=== PATIENT | female | born 1970 | race Two or more races ===

== ENCOUNTER → 2024-03-24 | Outpatient (CLI) | payer MEDICAID, SELFPAY ==
[2024-02-26 15:53] LABS: Blood Urea Nitrogen 14 mg/dL (9-23); Creatinine (Component) 0.6 mg/dL (0.6-1.3); eGFR > 60 See Note
--- NOTE | 2024-03-24 10:19 | XR_ITS ---
Examination: CT abdomen with intravenous contrast CT pelvis with intravenous contrast 2-D coronal reconstructions 2-D sagittal reconstructions Date and time of exam:March 24, 2024 1205 hours Comparison October 20, 2023 INDICATIONS: Hematuria beginning one year ago abdominal pain 3 months. History acute diverticulitis sigmoid colon October 20, 2023 CTDI: vol (mGy) 8.05 DLP: (mGycm) 420 Technique: Multiple axial sections of the abdomen and pelvis have been obtained. 64 slice high-resolution scanner used. 3 mm axial sections have been obtained, post intravenous injection 60 cc [id number] 2-D sagittal, coronal reconstructions obtained. Low dose protocols were performed. One or more of the following dose reduction techniques were used; automated exposure control, adjustment of the mA and/or KV according to patient size, use of iterative reconstruction technique. Findings: No focal liver or splenic lesions Gallbladder not visualized No pancreatic or adrenal mass No renal or ureteral calculi, no hydronephrosis Aorta normal size Normal appendix Colonic diverticulosis, no diverticulitis Contracted urinary bladder Absent uterus Significant degenerative disc disease L5-S1 IMPRESSION: No renal or ureteral calculi, no hydronephrosis Normal appendix Colonic diverticulosis no diverticulitis
== END | disposition home or self-care (01) ==
PROVIDERS: PCP Family Medicine; Referring Provider Internal Medicine Gastroenterology; Visit Provider Internal Medicine Gastroenterology
DX: K57.30 Diverticulosis of large intestine without perforation or abscess without bleeding (principal); R10.32 Left lower quadrant pain
CPT/HCPCS: 36415; 74177; 82565; 84520; A4649; Q9967

== ENCOUNTER 2024-07-12 01:31 | Emergency (ER) | payer MEDICAID, SELFPAY ==
[2024-07-12 01:38] VITALS: BP 137/81; PULSE 71; RESP 16; TEMP 36.7; O2SAT 97
--- NOTE | 2024-07-12 01:51 | PD.EDABDPN ---
ED Abdominal Pain RME/HPI General Chief Complaint: Abdominal Pain Stated complaint: ABD PAIN, RECTAL PAIN Time seen by provider: 07/12/24 01:37 Arrival date/time: 07/12/24 01:31 Source: patient Mode of arrival: ambulatory Limitations: language barrier RME / HPI RME / HPI narrative: 53-year-old female with past medical history of chronic hemorrhoids presents for evaluation of dysuria x 5 days. She reports suprapubic pressure and burning with urination. She notes intermittent scant rectal bleeding. She reports that was recently diagnosed with recurrence of hemorrhoids by her primary care doctor and given a bowel regimen which she is following at home. She denies constipation, flank pain, hematuria, fever, gross rectal breathing, nausea, vomiting, diarrhea, weakness, dizziness, chest pain, shortness of breath. Patient reports that she has not taken pain medication for her suprapubic discomfort prior to arrival to the ED. MD complaint: abdominal pain Onset (ago): day(s) Related Data Home Medications ?Medication ?Instructions ?Recorded ?Confirmed albuterol sulfate 90 mcg/actuation 2 puff inhalation QDAY PRN 08/27/21 01/16/22 aerosol inhaler Shortness Of Breath fluticasone propionate 50 1 spray intranasal QDAY PRN 08/27/21 01/16/22 mcg/actuation nasal ALLERGY SYMTPOMS spray,suspension dicyclomine 10 mg capsule 1 cap PO BID 01/16/22 01/16/22 gabapentin 400 mg capsule 1 cap PO QDAY 01/16/22 01/16/22 hydrocortisone 2.5 % topical cream 1 applic AL QDAY 01/16/22 01/16/22 with perineal applicator (Procto-Med ) nitrofurantoin 1 cap PO BID 01/16/22 01/16/22 monohydrate/macrocrystals 100 mg capsule omeprazole 20 mg capsule,delayed 1 cap PO BID 01/16/22 01/16/22 release omeprazole 40 mg capsule,delayed 1 cap PO QDAY 01/16/22 01/16/22 release oxybutynin chloride 10 mg 1 tab PO QDAY 01/16/22 01/16/22 tablet,extended release 24 hr pantoprazole 40 mg tablet,delayed 1 tab PO QDAY 01/16/22 01/16/22 release phenazopyridine 200 mg tablet 1 tab PO TID 01/16/22 01/16/22 Previous Rx's ?Medication ?Instructions ?Recorded ciprofloxacin HCl 500 mg tablet 500 mg PO BID #20 tabs 01/16/22 (Cipro) metronidazole 500 mg tablet 500 mg PO TID #21 tabs 01/16/22 metronidazole 500 mg tablet 500 mg PO TID #21 tabs 10/20/23 amoxicillin 500 mg-potassium 1 tab PO BID pyuria 7 days #14 07/12/24 clavulanate 125 mg tablet tabs (Augmentin) ibuprofen 800 mg tablet 800 mg PO Q8H PRN pain #14 tabs 07/12/24 Allergies Allergy/AdvReac Type Severity Reaction Status Date / Time codeine Allergy Severe Vomiting Verified 07/12/24 01:32 hydrocodone AdvReac Intermediate VOMITING Verified 07/12/24 01:32 Review of Systems Constitutional Constitutional: Denies fatigue, Denies fever(s) and Denies weakness ENT Ears, Nose, Mouth, and Throat: Denies neck pain Cardiovascular Cardiovascular: Denies acrocyanosis, Denies chest pain and Denies dyspnea Respiratory Respiratory: Denies cough and Denies dyspnea Gastrointestinal Gastrointestinal: Reports abdominal pain, Denies change in bowel habits, Denies constipation, Denies cramping, Denies hematochezia, Denies loose stools, Denies melena, Denies nausea and Denies vomiting Genitourinary Genitourinary: Reports dysuria, Denies flank pain, Denies hematuria and Denies urinary incontinence Musculoskeletal Musculoskeletal: Denies back pain and Denies neck pain Integumentary/Breasts Skin/Breast: Denies rash Neurologic Neurologic: Denies confusion and Denies weakness Psychiatric Psychiatric: Denies confusion Endocrine Endocrine: Denies fatigue Past Medical History Past Medical History NEUROLOGIC: Negative Neurological Disorders or Seizures CARDIAC: Negative Cardiac Disorders, Hypercholesterolemia, Congestive Heart Failure or Hypertension RESPIRATORY: Negative Chronic Obstructive Pulmonary Disease (COPD) or Asthma GASTROINTESTINAL: Positive Gastrointestinal Disorders, Gall Bladder Disease, Diverticulitis, Hemorrhoids and Gastroesophageal Reflux Disease GENITOURINARY: Negative Genitourinary Disorders or Renal Disease MUSCULOSKELETAL: Negative Musculoskeletal Disorders ENDOCRINE: Negative Endocrine Disorders, Diabetes Mellitus Type 1, Diabetes Mellitus Type 2 or Hypothyroidism HEMATOLOGIC: Negative Blood Disorders, Anemia or Sickle Cell Disease OTHER HISTORY: Negative Hospitalization, Autoimmune Disease, Falls, Blood Transfusions, Anesthesia Reactions or Cancer Surgical History SURGICAL: Positive Abdominal Surgery, Hysterectomy and Section Social History SMOKING STATUS: Never smoker SUBSTANCE USE: does not use ED Exam General Limitations: Present language barrier General appearance: Present alert and in no apparent distress Head Head exam: Present atraumatic and normocephalic Eye Eye exam: Present normal appearance and EOMI; Absent scleral icterus ENT ENT exam: Present normal oropharynx and mucous membranes moist Chest Chest inspection: Present normal inspection and symmetric chest wall rise Respiratory Respiratory exam: Absent respiratory distress Cardiovascular Cardiovascular exam: Present regular rate and +S1 Abdominal Exam Abdominal exam: Present soft, tenderness and normal bowel sounds; Absent distention, guarding or mass Abdominal tenderness: Present suprapubic Rectal Exam Rectal exam: Present deferred (Patient recently diagnosed with known internal hemorrhoids.) Extremities Exam Extremities exam: Present normal inspection and full ROM Back Exam Back exam: Present normal inspection; Absent CVA tenderness (R) or CVA tenderness (L) Neurological Exam Neurological exam: Present alert and normal gait Psychiatric Psychiatric exam: Present normal affect Skin Skin exam: Present warm, dry and intact Course Quality Measures none Orders Category Date Time Status UA, C/S IF [Urinalysis, C/S if Indicated] Stat Lab 07/12/24 02:02 Completed Acetaminophen Tab [Tylenol Tab] Med 07/12/24 01:45 Discontinued 650 mg PO X1 ONE Reevaluation(s) Reevaluation #1: Patient requesting to be discharged home. Agreeable with plan for further workup by primary care. Time: 03:49 Vital Signs Vital signs: Vital Signs Temperature 98.0 F 07/12/24 01:38 Pulse Rate 71 07/12/24 01:38 Respiratory Rate 16 07/12/24 01:38 Blood Pressure 137/81 H 07/12/24 01:38 Pulse Oximetry (%) 97 07/12/24 01:38 Oxygen Delivery Method Room Air 07/12/24 01:38 Pulse ox 97% on room air, within normal limits. Abdominal Pain MDM MDM Narrative MDM Narrative:: 53-year-old female presented for evaluation of suprapubic discomfort and dysuria. She notes known chronic hemorrhoids which have concurrently been uncomfortable. Vital signs reassuring. UA was ordered which showed pyuria. Considered ordered blood work to evaluate renal function, however patient was requesting to be discharged. We stressed the need for her to continue to follow-up with primary care as planned for further evaluation and treatment. Patient was started on oral antibiotic for possible early onset bacterial UTI. Patient stable at time of discharge. Return precautions were provided. Patient data External records reviewed:: [facility] previous records Clinical information provided by:: patient Social determinants that could affect healthcare access:: none Patient has the following chronic illnesses:: Known internal hemorrhoids. How is presenting disease/condition affected by chronic disease/condition?: exacerbated by Evaluation data The following diagnostics were reviewed and interpreted by me:: lab results Lab and/or radiology exams considered but not ordered:: CT abdomen pelvis considered not ordered. Labs considered not ordered. Interpretation Summary: UA with positive leukocytes and negative nitrites. Elevated white blood cell count on UA. Medications / Prescriptions Medications or Prescriptions considered but not ordered:: Rx given. Medication administrations:: Medication Administration History Discontinued Medications Acetaminophen (Acetaminophen 325 Mg Tablet) 650 mg PO X1 ONE Stop: 07/12/24 01:46 Last Admin: 07/12/24 01:56 Dose: 650 mg Documented By: CVL Rx given. Consultations Consultation(s) initiated? (list below): No Diagnosis Differential diagnosis abdominal pain: abdominal pain, calculus of kidney, gastroenteritis and other (Internal hemorrhoids, urinary tract infection, cystitis. ) Most likely diagnosis given after review of the tests above:: Pyuria. Admission Indicated Admission indicated?: not indicated Admission Request Was there a request for admission?: No Disposition Plan Disposition Plan: Discharge Discharge Attestation Discharge Attestation: The patient and all family members were given an opportunity to ask questions and understood the discharge instructions. Discharge instructions specifically effects, indications for sooner follow up or return to the emergency department, and the expected course of current diagnosis. Patient condition: Stable Discharge Plan Plan Patient Disposition: HOME (Self Care) Disposition Comment: stable Prescriptions/Referrals Prescriptions/Med Rec: New amoxicillin-pot clavulanate [Augmentin] 500-125 mg tablet 1 tab PO BID 7 Days Qty: 14 0RF ibuprofen 800 mg tablet 800 mg PO Q8H PRN (Reason: pain) Qty: 14 0RF No Action albuterol sulfate 90 mcg/actuation HFA aerosol inhaler 2 puff INHALATION QDAY PRN (Reason: Shortness Of Breath) fluticasone propionate 50 mcg/actuation spray,suspension 1 spray INTRANASAL QDAY PRN (Reason: ALLERGY SYMTPOMS) Patient Comments: USE 1 SPRAY(S) IN EACH NOSTRIL ONCE DAILY NEEDED FOR NASAL CONGESTION metronidazole 500 mg tablet 500 mg PO TID Qty: 21 0RF oxybutynin chloride 10 mg tablet extended release 24hr 1 tab PO QDAY phenazopyridine 200 mg tablet 1 tab PO TID gabapentin 400 mg capsule 1 cap PO QDAY omeprazole 40 mg capsule,delayed release(DR/EC) 1 cap PO QDAY hydrocortisone [Procto-Med HC] 2.5 % cream with perineal applicator 1 applic AL QDAY Patient Comments: INSERT CREAM RECTALLY ONCE DAILY pantoprazole 40 mg tablet,delayed release (DR/EC) 1 tab PO QDAY Patient Comments: TAKE 1 TABLET BY MOUTH ONCE DAILY omeprazole 20 mg capsule,delayed release(DR/EC) 1 cap PO BID Patient Comments: TAKE 1 CAPSULE BY MOUTH TWICE DAILY dicyclomine 10 mg capsule 1 cap PO BID Patient Comments: TAKE 1 CAPSULE BY MOUTH TWICE DAILY nitrofurantoin monohyd/m-cryst 100 mg capsule 1 cap PO BID ciprofloxacin HCl [Cipro] 500 mg tablet 500 mg PO BID Qty: 20 0RF metronidazole 500 mg tablet 500 mg PO TID Qty: 21 0RF Referrals: Albin Pelletier MD [Primary Care Provider] - In 1 week Problem List Clinical Impression: Pyuria Patient/Caregiver Discharge Instructions Other Activity Instructions:: Take Augmentin twice daily for pyuria with possible UTI. Continue bowel regimen as advised by primary care doctor. Take ibuprofen as needed for suprapubic pain. Follow-up with primary care doctor within the next 2 to 3 days for reevaluation. Return to the ED if your symptoms worsen or change. Print Language: Yoruba Stand Alone Forms: Nina Award Info., Patient Portal Info Letter PA/COMMUNITY MARKETING COORDINATOR Supervising Physician PA/ARI Supervising Physician: Dr. Linda
[2024-07-12] MEDS: ACETAMINOPHEN 325 MG TABLET 650 MG PO (01:56)
[2024-07-12 02:28] LABS: Collection Type, Urine Clean Catch
[2024-07-12 03:32] LABS: Bilirubin,Urine Negative (Negative); Blood,Urine Trace (Negative); Clarity,Urine Clear (Clear/Hazy); Color,Urine Yellow (Lt Yel-Yel); Culture Indicated,Urine Not Indicated; Glucose, Urine Trace (Negative); Ketones,Urine Trace (Negative); Leukocyte Esterase,Urine Positive (Negative); Nitrite,Urine Negative (Negative); PH,Urine 5.5 (5.0-7.0); Protein,Urine 1+ (Neg - Trace); RBC,Urine 5 /hpf (0-3); Specific Gravity,Urine 1.044 (1.001-1.035); Squamous Epithelial Cell,Urine 1 /hpf (0-5); Urobilinogen,Urine Negative mg/dL (0.0-1.0); WBC,Urine 2 /hpf (0-5)
[2024-07-12 04:01] VITALS: RESP 18
== END 2024-07-12 04:02 | disposition home or self-care (01) ==
PROVIDERS: Physician Assistant; Emergency Provider Emergency Medicine; PCP Family Medicine
DX: R82.81 Pyuria (principal); K64.9 Unspecified hemorrhoids
CPT/HCPCS: 81001; 99283; A9270

== ENCOUNTER → 2024-11-29 | Outpatient (CLI) | payer MEDICAID, SELFPAY ==
--- NOTE | 2024-11-29 14:30 | XR_ITS ---
Examination: CT abdomen and pelvis without contrast. Coronal 3-D reconstructions. Sagittal 2-D reconstructions. Date and time of exam:November 29, 2024 1508 hours, comparison March 24, 2024 INDICATIONS: Onset of pelvic and perineal pain 6 months CTDI: vol (mGy): 7.55 DLP: (mGycm): 111 Technique: Axial images of the abdomen have been obtained, 3 mm slice thickness Intravenous contrast material has not been administered. Low dose protocols were performed. One or more of the following dose reduction techniques were used; automated exposure control, adjustment of the mA and/or KV according to patient size, use of iterative reconstruction technique. Findings: No focal liver or splenic lesions Absent gallbladder No pancreatic or adrenal mass Mild renal parenchymal scar formation, no hydronephrosis Normal appendix No bowel obstruction Fluid distended small bowel loops Colonic diverticulosis Contracted urinary bladder Moderate disc narrowing L5-S1 IMPRESSION: Mild bilateral renal parenchymal scar formation Normal appendix Fluid distended small bowel loops, differential would include ileus, enteritis such as Crohn's disease, clinical correlation advised
== END | disposition home or self-care (01) ==
PROVIDERS: PCP Physician Assistant; Referring Provider Physician Assistant; Visit Provider Physician Assistant
DX: N28.89 Other specified disorders of kidney and ureter (principal); K63.89 Other specified diseases of intestine
CPT/HCPCS: 74176

== ENCOUNTER → 2024-12-16 | Outpatient (CLI) | payer MEDICAID, SELFPAY ==
--- NOTE | 2024-12-16 10:00 | XR_ITS ---
Examination: Screening digital mammography, bilateral Computer aided detection 3-D breast Tomosynthesis, bilateral Date and time of exam: 12/16/2024, 10:13 AM Comparisons: July 2020 through November 2023 Indications: Screening Technique: Nonmagnified MLO, CC views of the breasts to been obtained, reconstructed from 3-D Tomosynthesis images. R2 computer aided detection program utilized for evaluation of suspicious masses and/or abnormal calcifications. 3-D Tomosynthesis images obtained. Technologist: Findings: There are scattered areas of fibroglandular density. No evidence of abnormal masses or suspicious calcifications. Impression: BI-RADS category 1: Negative findings (within normal) Recommend 1 year follow-up mammogram
== END | disposition home or self-care (01) ==
PROVIDERS: PCP Nurse Practitioner Family; Referring Provider Nurse Practitioner Family; Visit Provider Nurse Practitioner Family
DX: Z12.31 Encounter for screening mammogram for malignant neoplasm of breast (principal); R92.313 Mammographic fatty tissue density, bilateral breasts
CPT/HCPCS: 77063; 77067

== ENCOUNTER → 2025-03-19 | Outpatient (CLI) | payer MEDICAID, SELFPAY ==
[2025-03-16 13:53] LABS: Blood Urea Nitrogen 10 mg/dL (9-23); Creatinine (Component) 0.6 mg/dL (0.6-1.3); eGFR > 60 See Note
--- NOTE | 2025-03-19 09:30 | XR_ITS ---
Examination: MRI abdomen with intravenous contrast. MRI abdomen without intravenous contrast. Date and time of exam: March 19, 2025, 1058 hours INDICATIONS: Colitis gastroenteritis abdominal pain, months, diagnosis hereditary hemolytic anemia Technique: Multiple axial, sagittal and coronal sections of the abdomen obtained. Transverse images, TR 6020, TE 107. T1 weighted transverse images, TR 582, TE 9.5. T2-weighted sagittal images, TR 4000, TE 105. T2-weighted sagittal images, TR 4000, TE 5. Coronal images, TR 4210, TE 107. Axial and coronal images are obtained post 19 cc intravenous injection, gadolinium. Findings: No focal liver lesions or biliary tract dilatation Gallbladder not visualized Normal common hepatic common bile duct Negative for pancreatitis Spleen not enlarged No hydronephrosis No ascites No enhancing liver splenic or renal mass lesion No adenopathy IMPRESSION: No focal liver or splenic lesions No extrahepatic biliary tract dilatation Negative for pancreatitis Negative for ascites
--- NOTE | 2025-03-19 10:30 | XR_ITS ---
Examination: MRI pelvis with intravenous contrast. MRI pelvis without intravenous contrast. Date and time of exam: March 19, 2025, 1058 hours INDICATIONS: Irritable bowel syndrome rectal hemorrhage pelvic pain painful urination 2 months Technique: Multiple axial, sagittal and coronal sections of the pelvis obtained. Transverse images, TR 6020, TE 107. T1 weighted transverse images, TR 582, TE 9.5. T2-weighted sagittal images, TR 4000, TE 105. T2-weighted sagittal images, TR 4000, TE 5. Coronal images, TR 4210, TE 107. Axial and coronal images are obtained post 19 cc intravenous injection, gadolinium. Findings: Colonic diverticulosis, no diverticulitis No common iliac or external iliac internal iliac or common femoral lymphadenopathy No free fluid in the pelvis Urinary bladder intact No hernia defects Post contrast images demonstrate no abnormal enhancing pelvic mass IMPRESSION: No pelvic mass or adenopathy noted Normal marrow signal
== END | disposition home or self-care (01) ==
LOC: SMRI 09:06
PROVIDERS: Referring Provider Internal Medicine Gastroenterology; Visit Provider Internal Medicine Gastroenterology
DX: K76.0 Fatty (change of) liver, not elsewhere classified (principal); K58.9 Irritable bowel syndrome, unspecified; K58.0 Irritable bowel syndrome with diarrhea; K62.5 Hemorrhage of anus and rectum; K62.9 Disease of anus and rectum, unspecified; K52.89 Other specified noninfective gastroenteritis and colitis; D58.9 Hereditary hemolytic anemia, unspecified; K64.8 Other hemorrhoids
CPT/HCPCS: 36415; 72197; 74183; 82565; 84520; A9577